=== PATIENT | male | born 1985 | race Caucasian/White ===

== ENCOUNTER → 2017-01-11 | Outpatient (REF) | LOC: WSOH 14:00 | DX: Z01.89 Encounter for other specified special examinations (principal) ==

== ENCOUNTER 2021-06-08 14:03 | Emergency (ER) | payer OTHER ==
[~2021-06-08] VITALS: Ht 177.8 cm; Wt 100.0 kg
[2021-06-08 14:15] VITALS: BP 132/89; PULSE 93; TEMP 98.2
[2021-06-08 15:08] LABS: BASO % 0.3 % (0.0-2.0); EOS # 0.1 K/mm3 (0.0-0.7); EOS % 0.6 % (0-4.0); GRAN # 7.3 K/mm3 (1.4-6.5); GRAN % 65.4 % (42.2-75.2); HEMATOCRIT 43.3 % (42.0-52.0); HEMOGLOBIN 16.1 g/dl (13.5-18.0); LYMPH # 2.9 K/mm3 (1.2-3.4); LYMPH % 26.4 % (20.0-51.0); MEAN CELL VOLUME 85 fl (80.0-100.0); MEAN CORPUSCULAR HEMOGLOBIN 31 pg (27.0-31.0); MEAN CORPUSCULAR HGB CONC 37 g/dl (33.0-37.0); MONO # 0.8 K/mm3 (0.1-0.6); PLATELET COUNT 264 K/mm3 (130-400); RED BLOOD COUNT 5.12 M/mm3 (4.20-5.60); REDCELL DISTRIBUTION WIDTH-CV 12.4 % (11.5-14.5)
[2021-06-08 15:30] LABS: ACETAMINOPHEN < 1.0 ug/mL (10-30); ALANINE AMINOTRANSFERASE 20 U/L (0-55); ALBUMIN 4.2 gm/dL (3.5-5.0); ALCOHOL(ethanol),MEDICAL < 10 mg/dL (0-10); ALKALINE PHOSPHATASE 119 U/L (40-150); ANION GAP 10 mmol/L (7-16); AST,SGOT 14 U/L (5-34); BILIRUBIN,TOTAL 1.4 mg/dL (0.2-1.2); BLOOD UREA NITROGEN 11 mg/dL (9-21); CALCIUM 9.6 mg/dL (8.4-10.2); CARBON DIOXIDE 23 mmol/L (22-29); CHLORIDE 105 mmol/L (98-107); GLUCOSE 101 mg/dL (70-99); POTASSIUM 3.6 mmol/L (3.5-4.5); SALICYLATE < 5.0 mg/dL (15.0-30.0); SODIUM 138 mmol/L (136-145); TOTAL PROTEIN 7.5 gm/dL (6.2-8.1)
[2021-06-08 15:49] LABS: TSH w REFLEX 0.895 uIU/mL (0.350-4.940)
[2021-06-08 16:09] LABS: COLLECTION METHOD CLEAN CATCH
[2021-06-08 16:19] LABS: MUCOUS Present /lpf; PH 6 (5-8); SQUAMOUS EPITHELIAL 0-2 /hpf; URINE APPEARANCE Hazy; URINE BACTERIA None Seen /hpf; URINE BILIRUBIN Negative (NEGATIVE); URINE BLOOD 1+ (NEGATIVE); URINE COLOR Yellow; URINE GLUCOSE Negative (NEGATIVE); URINE KETONE Negative (NEGATIVE); URINE LEUKOCYTE ESTERASE Negative (NEGATIVE); URINE NITRATE Negative (NEGATIVE); URINE PROTEIN(semi-quant) 2+ (NEGATIVE); URINE RBC 0-2 /hpf; URINE UROBILINOGEN Negative (NEGATIVE)
[2021-06-08 16:25] LABS: TRICYCLIC ANTIDEPRESS URINE NEGATIVE
== END 2021-06-08 23:42 ==
LOC: COL.ER 14:03
PROVIDERS: Nurse Practitioner Primary Care
DX: R45.851 Suicidal ideations (principal); Z20.822 Contact with and (suspected) exposure to COVID-19